=== PATIENT | female | born 1965 | race Caucasian/White ===

== ENCOUNTER → 2017-02-12 | Outpatient (CLI) | payer OTHER ==
[2017-02-12 18:33] LABS: ALANINE AMINOTRANSFERASE 20 U/L (9-52); ALBUMIN 4.1 g/dL (3.5-5.0); ALKALINE PHOSPHATASE 87 U/L (38-126); ASPARTATE AMINO TRANSFERASE 19 U/L (14-36); BILIRUBIN,DIRECT 0.3 mg/dL (0.0-0.4); BILIRUBIN,TOTAL 0.4 mg/dL (0.2-1.3)
== END ==
LOC: OD 17:27
PROVIDERS: ATTEND Radiology Radiation Oncology
DX: C50.411 Malignant neoplasm of upper-outer quadrant of right female breast (principal); Z79.899 Other long term (current) drug therapy
CPT/HCPCS: 36415; 80076

== ENCOUNTER → 2017-08-23 | Outpatient (CLI) | payer OTHER ==
[2017-08-23 18:40] LABS: ALANINE AMINOTRANSFERASE 29 U/L (9-52); ALKALINE PHOSPHATASE 77 U/L (38-126); ASPARTATE AMINO TRANSFERASE 17 U/L (14-36); TOTAL PROTEIN 6.5 g/dL (6.3-8.2)
[2017-08-23 18:43] LABS: BILIRUBIN,TOTAL < 0.1 mg/dL (0.2-1.3)
== END ==
LOC: OD 17:27
PROVIDERS: ATTEND Radiology Radiation Oncology
DX: C50.411 Malignant neoplasm of upper-outer quadrant of right female breast (principal); C77.3 Secondary and unspecified malignant neoplasm of axilla and upper limb lymph nodes
CPT/HCPCS: 36415; 80076

== ENCOUNTER → 2018-02-28 | Outpatient (CLI) | payer OTHER ==
[2018-02-28 18:51] LABS: ALANINE AMINOTRANSFERASE 18 U/L (9-52); ALBUMIN 4.3 g/dL (3.5-5.0); ALKALINE PHOSPHATASE 82 U/L (38-126); ASPARTATE AMINO TRANSFERASE 17 U/L (14-36); BILIRUBIN,DIRECT 0.2 mg/dL (0.0-0.4); BILIRUBIN,TOTAL 0.2 mg/dL (0.2-1.3); TOTAL PROTEIN 7.2 g/dL (6.3-8.2)
== END ==
LOC: OD 18:02
PROVIDERS: ATTEND Radiology Radiation Oncology
DX: C50.411 Malignant neoplasm of upper-outer quadrant of right female breast (principal); C77.3 Secondary and unspecified malignant neoplasm of axilla and upper limb lymph nodes
CPT/HCPCS: 36415; 80076

== ENCOUNTER 2018-11-18 07:55 | Inpatient (IN) | payer OTHER ==
[2018-11-18] MEDS ORDERED: ACETAMINOPHEN 325 MG TABLET PO ONE (08:31)
[2018-11-18] MEDS ORDERED: IPRATROPIUM/ALBUTEROL 0.5-2.5 MG/3 ML AMPUL NEB ONE (08:31)
[2018-11-18] MEDS ORDERED: NORMAL SALINE 1000 ML 1,000 ML IV ONE (08:31)
[2018-11-18 09:32] LABS: HEMATOCRIT 36.2 % (36.0-47.0); HEMOGLOBIN 11.9 g/dL (12.0-15.5); MEAN CORPUSCULAR HEMOGLOBIN 29.7 pg (27.0-33.4); MEAN CORPUSCULAR HGB CONC 32.9 g/dL (32.0-36.0); MEAN CORPUSCULAR VOLUME 90 fl (80-97); PLATELET COUNT 247 10^3/uL (150-450); RED BLOOD COUNT 4.01 10^6/uL (3.72-5.28); RED CELL DISTRIBUTION WIDTH 13.9 % (11.5-14.0); WHITE BLOOD COUNT 11.3 10^3/uL (4.0-10.5)
[2018-11-18 09:43] LABS: ALANINE AMINOTRANSFERASE 377 U/L (9-52); ALKALINE PHOSPHATASE 452 U/L (38-126); ANION GAP 11 (5-19); ASPARTATE AMINO TRANSFERASE 314 U/L (14-36); BILIRUBIN,DIRECT 0.3 mg/dL (0.0-0.4); BILIRUBIN,TOTAL 0.7 mg/dL (0.2-1.3); BLOOD UREA NITROGEN 8 mg/dL (7-20); CALCIUM 8.7 mg/dL (8.4-10.2); CARBON DIOXIDE 24 mmol/L (22-30); CHLORIDE 97 mmol/L (98-107); CREATINE KINASE 113 U/L (30-135); GLUCOSE 109 mg/dL (75-110); POTASSIUM 3.8 mmol/L (3.6-5.0); SODIUM 132.4 mmol/L (137-145); TOTAL PROTEIN 6.8 g/dL (6.3-8.2)
[2018-11-18 09:59] LABS: ABSOLUTE LYMPHOCYTES# (MANUAL) 0.6 10^3/uL (0.5-4.7); ABSOLUTE MONOCYTES # (MANUAL) 0.3 10^3/uL (0.1-1.4); ABSOLUTE NEUTROPHILS# (MANUAL) 10.4 10^3/uL (1.7-8.2); BAND NEUTROPHILS % (MANUAL) 7 % (3-5); BASOPHILS % (MANUAL) 0 % (0-2); EOSINOPHILS % (MANUAL) 0 % (0-6); LYMPHOCYTES % (MANUAL) 5 % (13-45); MONOCYTES % (MANUAL) 3 % (3-13); SEGMENTED NEUTROPHILS % (MAN) 85 % (42-78); TOTAL CELLS COUNTED 100
[2018-11-18 10:00] LABS: TOXIC VACUOLATION PRESENT
[2018-11-18 10:03] LABS: PLATELET COMMENT ADEQUATE; RBC MORPHOLOGY COMMENT NORMO-CYTIC/CHROMIC
[2018-11-18] MEDS ORDERED: LEVOFLOXACIN 750 MG/D5W RTU 750 MG/150 ML RTUPB IV ONE (10:34)
--- NOTE | 2018-11-18 10:41 | RADIOLOGY REPORT (SQ) ---
EXAM DESCRIPTION: CHEST 2 VIEWS COMPLETED DATE/TIME: 11/18/2018 10:25 am REASON FOR STUDY: productive cough COMPARISON: 08/07/2014 EXAM PARAMETERS: NUMBER OF VIEWS: two views TECHNIQUE: Digital Frontal and Lateral radiographic views of the chest acquired. RADIATION DOSE: NA LIMITATIONS: none FINDINGS: LUNGS AND PLEURA: Multifocal airspace disease, more extensive in the left perihilar-left upper and left lower lobes. Considerations for these findings include multifocal pneumonic infiltrat es and or edema. No pneumothorax or pleural effusion. MEDIASTINUM AND HILAR STRUCTURES: No masses or contour abnormalities. HEART AND VASCULAR STRUCTURES: Cardiomegaly and mild pulmonary vascular congestion, new findings. BONES: No acute findings. HARDWARE: None in the chest. OTHER: No other significant finding. IMPRESSION: 1. Bilateral multifocal airspace disease, more extensive on the left. Considerations fo r these findings include pneumonic infiltrates and or edema. Correlation suggested and additional im aging if clinically indicated 2. Cardiomegaly and mild pulmonary vascular congestion, new findings since the prior study dated . COMMENT: 1. The results of this examination were discussed with the emergency provider on 11/18/2018 at 10:34 hours. TECHNICAL DOCUMENTATION: JOB ID: [id number] [employer]- All Rights Reserved Reading location - IP/workstation name: [email or web address]
[2018-11-18 11:06] LABS: CREATINE KINASE MB 1.13 ng/mL (<4.55); TROPONIN I 0.023 ng/mL
--- NOTE | 2018-11-18 12:12 | ER Document Report ---
Entered by KAREN WASHINGTON SCRIBE 11/18/18 0840 Acting as scribe for:MARIZOL SCHWARTZ MD ED General - General Chief Complaint: Nausea/Vomiting Stated Complaint: DEHYDRATION Time Seen by Provider: 11/18/18 08:22 Mode of Arrival: Ambulatory Information source: Patient Notes: Patient is a 52 year old female with hypothyroidism and a history of breast cancer presents to the emergency department complaining of nausea, vomiting, intermittent fevers and cough onset 4 days ago. Patient describes her cough as initially nonproductive but reports it progressed to a productive cough with brown sputum 2 days ago. She states her vomiting progressively worsened over the weekend but reports no longer feeling nauseous after recently receiving a zofran shot from her PCP, Dr. Carrera. She reports taking Tylenol last night. She also complains of a sore throat but attributes this to her cough. She states "I am a cancer survivor but these symptoms are far worse". Patient states she takes Lasix for chronic edema in her BLE but has not taken any in 4 days due to her symptoms. TRAVEL OUTSIDE OF THE [place] IN LAST 30 DAYS: No - Related Data Allergies/Adverse Reactions: Sulfa (Sulfonamide Antibiotics) Allergy (Intermediate, Verified 09/13/12 09:02) tounge swelling, nubness around lips Past Medical History - General Information source: Patient - Social History Smoking Status: Never Smoker Cigarette use (# per day): No Chew tobacco use (# tins/day): No Smoking Education Provided: No Frequency of alcohol use: None Family History: Reviewed & Not Pertinent Malignancy Medical History: Reports: Hx Breast Cancer - stage 1, s/p lumpectomy September 2012 Psychiatric Medical History: Reports: Hx Depression Past Surgical History: Reports: Hx Breast Surgery, Hx Cholecystectomy, Hx Gastric Bypass Surgery, Hx Hysterectomy, Hx Thyroid Surgery - Immunizations Hx Diphtheria, Pertussis, Tetanus Vaccination: No - unsure Review of Systems - Review of Systems Constitutional: Fever EENT: No symptoms reported Cardiovascular: No symptoms reported Respiratory: See HPI, Cough Gastrointestinal: See HPI, Nausea, Vomiting Genitourinary: No symptoms reported Female Genitourinary: No symptoms reported Musculoskeletal: No symptoms reported Skin: No symptoms reported Hematologic/Lymphatic: No symptoms reported Neurological/Psychological: No symptoms reported -: Yes All other systems reviewed and negative Physical Exam - Vital signs Vitals: Temp Pulse Resp BP Pulse Ox 103.0 F H 106 H 22 H 160/83 H 89 L 11/18/18 08:08 11/18/18 08:08 11/18/18 08:08 11/18/18 08:08 11/18/18 08:08 - Notes Notes: GENERAL: Alert, interacts well. No acute distress. HEAD: Normocephalic, atraumatic. EYES: Pupils equal, round, and reactive to light. Extraocular movements intact. ENT: Oral mucosa dry, tongue midline. Voice is hoarse. NECK: Full range of motion. Supple. Trachea midline. LUNGS: Rhonchi and wheezes. No respiratory distress. HEART: Tachycardic. No murmurs, gallops, or rubs. ABDOMEN: Soft, obese, non-tender. Non-distended. Bowel sounds present in all 4 quadrants. No guarding, rigidity, or rebound. EXTREMITIES: Moves all 4 extremities spontaneously. Chronic edema to the BLE, radial and dorsalis pedis pulses 2/4 bilaterally. No cyanosis. NEUROLOGICAL: Alert and oriented x3. Normal speech. PSYCH: Normal affect, normal mood. SKIN: Warm, dry, normal turgor. No rashes or lesions noted. Course - Vital Signs Vital signs: Temp Pulse Resp BP Pulse Ox 98.3 F 106 H 19 153/91 H 94 11/18/18 12:41 11/18/18 08:08 11/18/18 12:01 11/18/18 12:01 11/18/18 12:01 - Laboratory Result Diagrams: 11/18/18 09:08 11/18/18 09:08 Laboratory results interpreted by me: 11/18/18 11/18/18 09:08 09:08 WBC 11.3 H Hgb 11.9 L Seg Neuts % (Manual) 85 H Band Neutrophils % 7 H Lymphocytes % (Manual) 5 L Abs Neuts (Manual) 10.4 H Sodium 132.4 L Chloride 97 L Creatinine 0.50 L AST 314 H ALT 377 H Alkaline Phosphatase 452 H - Diagnostic Test Radiology reviewed: Image reviewed, Reports reviewed - Chest x-ray shows bilateral multifocal airspace disease, more extensive on the left. There is also cardiomegaly and mild pulmonary vascular congestion which are new compared to a prior study from 08/07/2014. - EKG Interpretation by Me EKG shows normal: Sinus rhythm, Baudette, Intervals, QRS Complexes. abnormal: ST-T Waves - Borderline anterolateral T abnormalities Rate: Normal - 90 Rhythm: NSR P Waves: LAE - Consults Dr. Pepper Time consulted: 11:35 Consulted provider: will come to ER - Telemetry admission. Dr. Pepper was informed that Dr. Brandon wanted to be consulted on this patient. Discharge - Discharge Clinical Impression: Multifocal pneumonia, Elevated liver enzymes, Cardiac enlargement Fever Qualifiers: Fever type: unspecified Qualified Code(s): R50.9 - Fever, unspecified Leukocytosis Qualifiers: Leukocytosis type: bandemia Qualified Code(s): D72.825 - Bandemia Condition: Stable Disposition: ADMITTED INPATIENT Admitting Provider: Hospitalist Unit Admitted: Telemetry Scribe Attestation: 11/18/18 08:51 I personally performed the services described in the documentation, reviewed and edited the documentation which was dictated to the scribe in my presence, and it accurately records my words and actions. I personally performed the services described in the documentation, reviewed and edited the documentation which was dictated to the scribe in my presence, and it accurately records my words and actions.
[2018-11-18] MEDS ORDERED: ONDANSETRON HCL INJ/PF 4 MG/2 ML SDV IV PRN (12:20)
--- NOTE | 2018-11-18 12:46 | PDOC H&P ---
History of Present Illness Admission Date/PCP: RANULFO MCCORD MD Patient complains of: cough, fever History of Present Illness: TAZ LUONG is a 52 year old female witha PMH of Stage 1 breast CA w/ prior lumpectomy in 2012, prior chemoradiation, recnetl taken off Tamoxifen in Apr 2018, history of Rena en Y bypass and hypothyroidism who presented with increasingly productive cough. Patient says she had cough and cold on Sunday and was negative tested for flu by PCP then. She says on sunday, she started having more productive cough with brownish sputum associated with chills and fever. She developed mild SOB but says it is more from all the bouts of coughing. She is not dyspneic at rest. Denies chest pain. In the ER, lowest sat was 89% on room air. Chest x -ray shows multifocal pneumonia. She is currently comfortable and saturating well on 2 lpm via NC. Past Medical History Cardiac Medical History: Denies: Hypertension - previous meds prior to gastric bypass 2007 Malignancy Medical History: Reports: Breast Cancer - stage 1, s/p lumpectomy September 2012 Musculoskeltal Medical History: Denies: Arthritis Psychiatric Medical History: Reports: Depression Hematology: Reports: Anemia - since gastric bypass Past Surgical History Past Surgical History: Reports: Cholecystectomy, Gastric Bypass Surgery, Hysterectomy Denies: Pacemaker Social History Smoking Status: Never Smoker Family History Family History: Reviewed & Not Pertinent Parental Family History Reviewed: Yes - no premature CAD Children Family History Reviewed: No Sibling(s) Family History Reviewed.: No Medication/Allergy Home Medications: Calcium Citrate/Vitamin D3 [Citracal + D Caplet] 1 each PO TID 09/13/12 Cyanocobalamin (Vitamin B-12) [Vitamin B-12] 500 mcg SL DAILY 09/13/12 Levothyroxine Sodium [Synthroid] 175 mcg PO DAILY 09/13/12 Acetaminophen [Tylenol Extra Strength] 500 mg PO ASDIR PRN 10/03/12 Multi-Vitamin 4 tab PO BID 10/03/12 Zolpidem Tartrate [Ambien 10 mg Tablet] 10 mg PO HSP PRN 10/03/12 Gabapentin [Neurontin 300 mg Capsule] 08/07/14 Hydrocodone Bit/Acetaminophen [Hydrocodon-Acetaminophen 5-325] 1 - 2 tab PO ASDIR PRN #10 tablet 08/07/14 Ondansetron [Zofran Odt 4 mg Tablet] 1 - 2 tab PO Q4H #20 tab.rapdis 08/07/14 Tamoxifen Citrate 08/07/14 Venlafaxine HCl [Effexor 75 mg Tablet] 08/07/14 Allergies/Adverse Reactions: Sulfa (Sulfonamide Antibiotics) Allergy (Intermediate, Verified 09/13/12 09:02) tounge swelling, nubness around lips Review of Systems All systems: reviewed and no additional remarkable complaints except as stated - as mentioned in HPI Physical Exam Vital Signs: Temp Pulse Resp BP Pulse Ox 103.0 F H 106 H 21 H 140/82 H 94 11/18/18 08:08 11/18/18 08:08 11/18/18 10:01 11/18/18 10:01 11/18/18 10:01 Intake & Output 11/17/18 11/18/18 11/19/18 06:59 06:59 06:59 Intake Total 1000 Balance 1000 Weight 298 lb 8.094 oz General appearance: PRESENT: no acute distress, well-developed, well-nourished Head exam: PRESENT: atraumatic, normocephalic Eye exam: PRESENT: conjunctiva pink, EOMI, PERRLA. ABSENT: scleral icterus Ear exam: PRESENT: normal external ear exam Mouth exam: PRESENT: moist, tongue midline Neck exam: ABSENT: carotid bruit, JVD, lymphadenopathy, thyromegaly Respiratory exam: PRESENT: rales, rhonchi. ABSENT: wheezes Cardiovascular exam: PRESENT: RRR. ABSENT: diastolic murmur, rubs, systolic murmur Pulses: PRESENT: normal dorsalis pedis pul GI/Abdominal exam: PRESENT: normal bowel sounds, soft. ABSENT: distended, guarding, mass, organolmegaly, rebound, tenderness Rectal exam: PRESENT: deferred Neurological exam: PRESENT: alert, awake, oriented to person, oriented to place, oriented to time, oriented to situation, CN II-XII grossly intact. ABSENT: motor sensory deficit Results Laboratory Results: 11/18/18 09:08 11/18/18 09:08 11/18/18 11/18/18 09:08 09:08 WBC 11.3 H RBC 4.01 Hgb 11.9 L Hct 36.2 MCV 90 MCH 29.7 MCHC 32.9 RDW 13.9 Plt Count 247 Seg Neutrophils % Not Reportable Lymphocytes % Not Reportable Monocytes % Not Reportable Eosinophils % Not Reportable Basophils % Not Reportable Absolute Neutrophils Not Reportable Absolute Lymphocytes Not Reportable Absolute Monocytes Not Reportable Absolute Eosinophils Not Reportable Absolute Basophils Not Reportable Sodium 132.4 L Potassium 3.8 Chloride 97 L Carbon Dioxide 24 Anion Gap 11 BUN 8 Creatinine 0.50 L Est GFR ( Amer) > 60 Est GFR (Non-Af Amer) > 60 Glucose 109 Calcium 8.7 Magnesium 1.9 Total Bilirubin 0.7 AST 314 H ALT 377 H Alkaline Phosphatase 452 H Total Protein 6.8 Albumin 4.0 11/18/18 11/18/18 09:08 09:08 Creatine Kinase 113 CK-MB (CK-2) 1.13 Troponin I 0.023 NT-Pro-B Natriuret Pep 847 Impressions: Chest X-Ray 11/18/18 10:02 IMPRESSION: 1. Bilateral multifocal airspace disease, more extensive on the left. Considerations for these findings include pneumonic infiltrates and or edema. Correlation suggested and additional imaging if clinically indicated 2. Cardiomegaly and mild pulmonary vascular congestion, new findings since the prior study dated 08/07/2014. Assessment & Plan - Diagnosis (1) Acute respiratory failure with hypoxia Is this a current diagnosis for this admission?: Yes Plan: Secondary to multifocal pneumonia. Saturating well on 2 lpm via NC. (2) Multifocal pneumonia Is this a current diagnosis for this admission?: Yes Plan: Will order sputum culture. IV Levaquin and breathing treatments. (3) Elevated liver enzymes Is this a current diagnosis for this admission?: Yes Plan: She has a history of cholecystectomy. She did say she was taking 1000 mg of Tylenol q4 hrs in the past 2 days for the fever. Alk Phos is also elevated. Will pursue imaging to further evaluate cause of transaminitis. Will check a hepatitis panel. No Tylenol for now. Ibuprofen for fever prn for now. - Time Time Spent: 30 to 50 Minutes
[2018-11-18] MEDS ORDERED: FONDAPARINUX SODIUM INJ 2.5 MG/0.5 ML DISP.SYRIN SUBCUT ONE (13:00)
--- NOTE | 2018-11-18 13:24 | RADIOLOGY REPORT (SQ) ---
EXAM DESCRIPTION: CT ABD/PELVIS NO ORAL OR IV COMPLETED DATE/TIME: 11/18/2018 1:11 pm REASON FOR STUDY: vomiting, elevated liver enzymes COMPARISON: None. TECHNIQUE: CT scan of the abdomen and pelvis performed without intravenous or oral contrast. Images reviewed with lung, soft tissue, and bone windows. Reconstructed coronal and sagittal MPR images revi ewed. All images stored on PACS. All CT scanners at this facility use dose modulation, iterative reconstruction, and/or weight based d osing when appropriate to reduce radiation dose to as low as reasonably achievable (ALARA). [facility]: Dose Right [facility]: CareDose [facility]: Dose Right [facility]: Teradose 4D [facility]: [employer] Technologies RADIATION DOSE: CT Rad equipment meets quality standard of care and radiation dose reduction techniq ues were employed. CTDIvol: 21.1 mGy. DLP: 1183 mGy-cm.mGy. LIMITATIONS: None. FINDINGS: LOWER CHEST: Infiltrates with air bronchograms in the left lower lobe and inferior left up per lobe/ lingula. Patchy parenchymal densities in the right lower lobe. NON-CONTRASTED LIVER, SPLEEN, ADRENALS: Evaluation limited by lack of IV contrast. No identified sign ificant masses. PANCREAS: No masses. No peripancreatic inflammatory changes. GALLBLADDER: Surgically absent. RIGHT KIDNEY AND URETER: No suspicious masses. Assessment limited by lack of IV contrast. No signif icant calcifications. No hydronephrosis or hydroureter. LEFT KIDNEY AND URETER: No suspicious masses. Assessment limited by lack of IV contrast. No signifi cant calcifications. No hydronephrosis or hydroureter. AORTA AND RETROPERITONEUM: No aneurysm. No retroperitoneal masses or adenopathy. BOWEL AND PERITONEAL CAVITY: Previous gastric surgery. No obvious masses or inflammatory changes. No free fluid. APPENDIX: Normal. PELVIS, BLADDER, AND ABDOMINAL WALL:No abnormal masses. No free fluid. Bladder normal. BONES: No significant findings. OTHER: No other significant finding. IMPRESSION: 1. MULTIFOCAL PULMONARY INFILTRATES IN THE VISUALIZED LOWER CHEST CONSISTENT WITH PNEUMONIA. 2. OTHERWISE NO SIGNIFICANT OR ACUTE PROCESS IN THE ABDOMEN OR PELVIS. INCIDENTAL SURGICAL CHANGES. COMMENT: Quality ID # [id number]: Final reports with documentation of one or more dose reduction techniques (e.g., Automated exposure control, adjustment of the mA and/or kV according to patient size, use of iterative reconstruction technique) TECHNICAL DOCUMENTATION: JOB ID: [id number] [employer]- All Rights Reserved Reading location - IP/workstation name: [email or web address]
[2018-11-18] MEDS: NORMAL SALINE 1000 ML 1,000 ML IV PRN (13:25)
--- NOTE | 2018-11-18 13:38 | EKG REPORT ---
SEVERITY:- BORDERLINE ECG - SINUS RHYTHM PROBABLE LEFT ATRIAL ABNORMALITY BORDERLINE T ABNORMALITIES, ANT-LAT LEADS : Confirmed by: Lopez Haynes MD 18-Nov-2018 13:38:14
[2018-11-18] MEDS: IBUPROFEN 400 MG TABLET PO PRN ×2 (17:02→23:50)
[2018-11-18 17:03] LABS: APPEARANCE,URINE CLEAR; BILIRUBIN,URINE NEGATIVE (NEGATIVE); COLOR,URINE YELLOW; GLUCOSE, URINE NEGATIVE (NEGATIVE); KETONES,URINE 80 mg/dL (NEGATIVE); LEUKOCYTE ESTERASE,URINE NEGATIVE (NEGATIVE); NITRITE,URINE NEGATIVE (NEGATIVE); PROTEIN,URINE NEGATIVE (NEGATIVE); URINE SPECIFIC GRAVITY 1.012; UROBILINOGEN,URINE NEGATIVE mg/dL (<2.0)
[2018-11-18] MEDS ORDERED: HYDRALAZINE HCL INJ/PF 20 MG/1 ML SDV IV PRN (18:21)
[2018-11-18] MEDS ORDERED: ACETAMINOPHEN 325 MG TABLET ONE (23:43)
[2018-11-18] MEDS ORDERED: ACETAMINOPHEN 325 MG TABLET PO PRN (23:48)
[2018-11-19] MEDS: ALBUTEROL SULFATE 0.083% NEB 2.5 MG/3 ML AMPUL NEB PRN ×3 (00:42→18:04)
[2018-11-19] MEDS: NORMAL SALINE 1000 ML 1,000 ML IV PRN ×2 (06:35→15:22)
[2018-11-19] MEDS ORDERED: FONDAPARINUX SODIUM INJ 2.5 MG/0.5 ML DISP.SYRIN SUBCUT SCH (08:00)
[2018-11-19] MEDS ORDERED: POLYETHYLENE GLYCOL 3350 POWDER 17 GM/1 PACKET PO PRN (09:53)
[2018-11-19] MEDS: LEVOFLOXACIN 750 MG/D5W RTU 750 MG/150 ML RTUPB IV SCH (10:31)
[2018-11-19] MEDS: FONDAPARINUX SODIUM INJ 2.5 MG/0.5 ML DISP.SYRIN SUBCUT SCH (11:13)
[2018-11-19 11:40] LABS: HEPATITIS A AB IGM Negative (Negative); HEPATITIS B CORE AB IGM Negative (Negative); HEPATITS B SURFACE ANTIGEN Negative (Negative)
[2018-11-19 12:04] LABS: ABSOLUTE LYMPHOCYTES (AUTO) 1.1 10^3/uL (0.5-4.7); ABSOLUTE MONOCYTES (AUTO) 0.5 10^3/uL (0.1-1.4); ABSOLUTE NEUT (AUTO) 9.3 10^3/uL (1.7-8.2); BASOPHILS % (AUTO) 0.3 % (0-2); EOSINOPHILS % (AUTO) 0.2 % (0-6); HEMATOCRIT 37.8 % (36.0-47.0); HEMOGLOBIN 12.7 g/dL (12.0-15.5); LYMPHOCYTES % (AUTO) 10.1 % (13-45); MEAN CORPUSCULAR HEMOGLOBIN 30.2 pg (27.0-33.4); MEAN CORPUSCULAR HGB CONC 33.7 g/dL (32.0-36.0); MEAN CORPUSCULAR VOLUME 90 fl (80-97); MONOCYTES % (AUTO) 4.7 % (3-13); PLATELET COUNT 261 10^3/uL (150-450); RED BLOOD COUNT 4.21 10^6/uL (3.72-5.28); SEGMENTED NEUTROPHILS % (AUTO) 84.7 % (42-78); TOTAL CELLS COUNTED % (AUTO) 100 %; WHITE BLOOD COUNT 10.9 10^3/uL (4.0-10.5)
[2018-11-19 12:05] LABS: ALANINE AMINOTRANSFERASE 252 U/L (9-52); ALBUMIN 4.2 g/dL (3.5-5.0); ALKALINE PHOSPHATASE 389 U/L (38-126); ANION GAP 13 (5-19); ASPARTATE AMINO TRANSFERASE 121 U/L (14-36); BILIRUBIN,DIRECT 0.4 mg/dL (0.0-0.4); BILIRUBIN,TOTAL 0.6 mg/dL (0.2-1.3); BLOOD UREA NITROGEN 8 mg/dL (7-20); CALCIUM 9.1 mg/dL (8.4-10.2); CARBON DIOXIDE 24 mmol/L (22-30); CHLORIDE 101 mmol/L (98-107); GLUCOSE 131 mg/dL (75-110); POTASSIUM 3.6 mmol/L (3.6-5.0); SODIUM 137.5 mmol/L (137-145); TOTAL PROTEIN 7.4 g/dL (6.3-8.2)
[2018-11-19] MEDS ORDERED: ZOLPIDEM TARTRATE 5 MG TABLET PO PRN (12:34)
--- NOTE | 2018-11-19 12:34 | PDOC PROGRESS REPORT ---
Subjective Progress Note for:: 11/19/18 Subjective:: TAZ LUONG is a 52 year old female with a PMH of Stage 1 breast CA w/ prior lumpectomy in 2012, prior chemoradiation, recently taken off Tamoxifen in Apr 2018, history of Rena en Y bypass and hypothyroidism who presented with increasingly productive cough and hypoxia and was admitted for multifocal pneumonia. No acute event overnight. She is currently comfortable and saturating well on 2 lpm via NC. She says her SOB has slightly improved from yesterday. She continues to have very productive cough with grayish-brownish sputum. Reason For Visit: ACUTE HYPOXIC RESPIRATORY FAILURE,MULTIFOCAL Physical Exam Vital Signs: Temp Pulse Resp BP Pulse Ox 98.4 F 103 H 20 138/76 H 96 11/19/18 11:26 11/19/18 11:26 11/19/18 11:26 11/19/18 11:26 11/19/18 11:26 Intake & Output 11/18/18 11/19/18 11/20/18 06:59 06:59 06:59 Intake Total 2150 Balance 2150 Weight 310 lb 3.046 oz General appearance: PRESENT: no acute distress, well-developed, well-nourished Head exam: PRESENT: atraumatic, normocephalic Eye exam: PRESENT: conjunctiva pink, EOMI, PERRLA. ABSENT: scleral icterus Ear exam: PRESENT: normal external ear exam Mouth exam: PRESENT: moist, tongue midline Neck exam: ABSENT: carotid bruit, JVD, lymphadenopathy, thyromegaly Respiratory exam: PRESENT: rales, rhonchi. ABSENT: wheezes Cardiovascular exam: PRESENT: RRR. ABSENT: diastolic murmur, rubs, systolic murmur Pulses: PRESENT: normal dorsalis pedis pul GI/Abdominal exam: PRESENT: normal bowel sounds, soft. ABSENT: distended, guarding, mass, organolmegaly, rebound, tenderness Rectal exam: PRESENT: deferred Neurological exam: PRESENT: alert, awake, oriented to person, oriented to place, oriented to time, oriented to situation, CN II-XII grossly intact. ABSENT: motor sensory deficit Results Laboratory Results: 11/19/18 11:26 11/19/18 11:26 11/18/18 11/18/18 11/19/18 16:40 17:40 11:26 WBC 10.9 H RBC 4.21 Hgb 12.7 Hct 37.8 MCV 90 MCH 30.2 MCHC 33.7 RDW 14.0 Plt Count 261 Seg Neutrophils % 84.7 H Lymphocytes % 10.1 L Monocytes % 4.7 Eosinophils % 0.2 Basophils % 0.3 Absolute Neutrophils 9.3 H Absolute Lymphocytes 1.1 Absolute Monocytes 0.5 Absolute Eosinophils 0.0 Absolute Basophils 0.0 Sodium Potassium Chloride Carbon Dioxide Anion Gap BUN Creatinine Est GFR ( Amer) Est GFR (Non-Af Amer) Glucose Lactic Acid 2.2 H Calcium Total Bilirubin AST ALT Alkaline Phosphatase Total Protein Albumin Urine Color YELLOW Urine Appearance CLEAR Urine pH 6.0 Ur Specific [place] 1.012 Urine Protein NEGATIVE Urine Glucose (UA) NEGATIVE Urine Ketones 80 H Urine Blood SMALL H Urine Nitrite NEGATIVE Ur Leukocyte Esterase NEGATIVE Urine WBC (Auto) 2 Urine RBC (Auto) 3 11/19/18 11:26 WBC RBC Hgb Hct MCV MCH MCHC RDW Plt Count Seg Neutrophils % Lymphocytes % Monocytes % Eosinophils % Basophils % Absolute Neutrophils Absolute Lymphocytes Absolute Monocytes Absolute Eosinophils Absolute Basophils Sodium 137.5 Potassium 3.6 Chloride 101 Carbon Dioxide 24 Anion Gap 13 BUN 8 Creatinine 0.45 L Est GFR ( Amer) > 60 Est GFR (Non-Af Amer) > 60 Glucose 131 H Lactic Acid Calcium 9.1 Total Bilirubin 0.6 AST 121 H ALT 252 H Alkaline Phosphatase 389 H Total Protein 7.4 Albumin 4.2 Urine Color Urine Appearance Urine pH Ur Specific [place] Urine Protein Urine Glucose (UA) Urine Ketones Urine Blood Urine Nitrite Ur Leukocyte Esterase Urine WBC (Auto) Urine RBC (Auto) 11/18/18 11/18/18 09:08 09:08 Creatine Kinase 113 CK-MB (CK-2) 1.13 Troponin I 0.023 NT-Pro-B Natriuret Pep 847 Impressions: Chest X-Ray 11/18/18 10:02 IMPRESSION: 1. Bilateral multifocal airspace disease, more extensive on the left. Considerations for these findings include pneumonic infiltrates and or edema. Correlation suggested and additional imaging if clinically indicated 2. Cardiomegaly and mild pulmonary vascular congestion, new findings since the prior study dated 08/07/2014. Abdomen/Pelvis CT 11/18/18 11:54 IMPRESSION: 1. MULTIFOCAL PULMONARY INFILTRATES IN THE VISUALIZED LOWER CHEST CONSISTENT WITH PNEUMONIA. 2. OTHERWISE NO SIGNIFICANT OR ACUTE PROCESS IN THE ABDOMEN OR PELVIS. INCIDENTAL SURGICAL CHANGES. Assessment & Plan - Diagnosis (1) Sepsis Is this a current diagnosis for this admission?: Yes Plan: Secondary to multifocal pneumonia. Patient was tachypneic and hypoxic when she came in. She had elevated WBC and elevated liver enzymes. (2) Acute respiratory failure with hypoxia Is this a current diagnosis for this admission?: Yes Plan: Secondary to multifocal pneumonia. Saturating well on 2 lpm via NC. (3) Multifocal pneumonia Is this a current diagnosis for this admission?: Yes Plan: Sputum culture pending. Continue IV Levaquin and breathing treatments. (4) Elevated liver enzymes Is this a current diagnosis for this admission?: Yes Plan: She has a history of cholecystectomy. She did say she was taking 1000 mg of Tylenol q4 hrs in the past 2 days for the fever. Alk Phos is also elevated. CT of the abdomen/pelvis was unremarkable. Hepatitis panel pending. No Tylenol for now. Ibuprofen for fever prn for now. This could be related to her sepsis and not likely suggestive of mets. Liver enzymes are improving. Will continue to monitor. - Time Time Spent with patient: 25-34 minutes
[2018-11-19 12:39] LABS: HEPATITIS C VIRUS ANTIBODY <0.1 s/co ratio (0.0-0.9)
[2018-11-19] MEDS: IBUPROFEN 400 MG TABLET PO PRN (20:09)
[2018-11-20 00:17] LABS: ALANINE AMINOTRANSFERASE 171 U/L (9-52); ALBUMIN 3.4 g/dL (3.5-5.0); ALKALINE PHOSPHATASE 286 U/L (38-126); ANION GAP 7 (5-19); ASPARTATE AMINO TRANSFERASE 72 U/L (14-36); BILIRUBIN,DIRECT 0.2 mg/dL (0.0-0.4); BILIRUBIN,TOTAL 0.4 mg/dL (0.2-1.3); BLOOD UREA NITROGEN 7 mg/dL (7-20); CALCIUM 8.3 mg/dL (8.4-10.2); CARBON DIOXIDE 25 mmol/L (22-30); CHLORIDE 104 mmol/L (98-107); GLUCOSE 108 mg/dL (75-110); POTASSIUM 3.4 mmol/L (3.6-5.0); SODIUM 136.3 mmol/L (137-145); TOTAL PROTEIN 6.1 g/dL (6.3-8.2)
[2018-11-20] MEDS: POTASSIUM CHLORIDE 20 MEQ/50 ML RTU IV SCH ×2 (01:37→03:17)
[2018-11-20] MEDS: NORMAL SALINE 1000 ML 1,000 ML IV PRN ×2 (03:23→18:43)
[2018-11-20] MEDS: IBUPROFEN 400 MG TABLET PO PRN (03:23)
[2018-11-20] MEDS: LEVOFLOXACIN 750 MG/D5W RTU 750 MG/150 ML RTUPB IV SCH (11:45)
[2018-11-20] MEDS: FONDAPARINUX SODIUM INJ 2.5 MG/0.5 ML DISP.SYRIN SUBCUT SCH (11:46)
--- NOTE | 2018-11-20 12:18 | RADIOLOGY REPORT (SQ) ---
EXAM DESCRIPTION: PICC INSERTION; U/S GUIDE FOR VASCULAR ACCESS; FLUORO/CV PLACEMENT COMPLETED DATE/TIME: 11/20/2018 11:03 am REASON FOR STUDY: BLOOD DRAWS; IV ACCESS COMPARISON: None. FLUOROSCOPY TIME: 0.29 minutes. 1 images saved to PACS. TECHNIQUE: Fluoroscopic and ultrasound guided PICC placement. LIMITATIONS: None. PROCEDURE: After written consent and assessment were obtained, the patient was brought into the fluo roscopy room and placed supine on the table. Ultrasound evaluation of potential access sites were per formed. After successfully identifying a patent left basilic vein, the left arm was prepped and drape d in a sterile fashion along with the ultrasound probe. The entry site was anesthetized with 1% lidoc tani. A 21 gauge 7 cm needle was advanced through the skin and into the basilic vein under live ultra sound guidance. An ultrasound image was saved to PACS confirming access site. A .018 guide wire was then inserted through the needle and into the venous system. The needle was then removed and an 11 b lade scalpel was used to make a 1cm skin incision. A 5 fr peel-away sheath was advanced over the wir e and into the venous system. A measurement was then made using the existing wire and live fluoroscop ic guidance. The wire was then removed and trimmed. The PICC was advanced through the peel-away sheat h and into the venous system. The peel-away sheath was removed and the catheter was adhered to the pa tients arm with a stat lock. The catheter was then aspirated and flushed and a sterile bandage was pl aced over the access site. A fluoroscopic spot image was saved to PACS confirming the catheter tip w ithin the superior vena cava. IMPRESSION: SUCCESSFUL PLACEMENT OF A 5 FR DUAL LUMEN 47 CM PICC IN THE LEFT BASILIC VEIN. COMMENT: Patient medication list reviewed: Yes- Quality ID# [id number]:Eligible professional attests to doc umenting in the medical record they obtained, updated, or reviewed the patient's current medications. . Quality ID 145: Final reports for procedures using fluoroscopy that document radiation exposure fidel imani, or exposure time and number of fluorographic images (if radiation exposure indices are not avail able) Quality ID #76: The patient was prepped and draped using maximum sterile barrier technique including cap, mask, sterile gown, sterile gloves, a large sterile sheet, hand hygiene, and 2% Chlorhexidine fo r cutaneous antisepsis. When ultrasound is used, sterile ultrasound techniques are followed requiring sterile gel and sterile probes. TECHNICAL DOCUMENTATION: JOB ID: [id number] [employer]- All Rights Reserved rev-01/25 Reading location - IP/workstation name: [email or web address]
[2018-11-20 12:24] LABS: ABSOLUTE EOSINOPHILS # (AUTO) 0.2 10^3/uL (0.0-0.6); ABSOLUTE LYMPHOCYTES (AUTO) 0.9 10^3/uL (0.5-4.7); ABSOLUTE MONOCYTES (AUTO) 0.5 10^3/uL (0.1-1.4); ABSOLUTE NEUT (AUTO) 6.3 10^3/uL (1.7-8.2); BASOPHILS % (AUTO) 0.4 % (0-2); HEMATOCRIT 32.5 % (36.0-47.0); HEMOGLOBIN 10.9 g/dL (12.0-15.5); LYMPHOCYTES % (AUTO) 11.5 % (13-45); MEAN CORPUSCULAR HEMOGLOBIN 30.1 pg (27.0-33.4); MEAN CORPUSCULAR HGB CONC 33.6 g/dL (32.0-36.0); MEAN CORPUSCULAR VOLUME 90 fl (80-97); MONOCYTES % (AUTO) 6.1 % (3-13); PLATELET COUNT 247 10^3/uL (150-450); RED BLOOD COUNT 3.63 10^6/uL (3.72-5.28); TOTAL CELLS COUNTED % (AUTO) 100 %; WHITE BLOOD COUNT 7.8 10^3/uL (4.0-10.5)
[2018-11-20] MEDS ORDERED: NORMAL SALINE 10 ML SDV (AFTER EACH USE) IV PRN (12:30)
[2018-11-20 12:44] LABS: ALANINE AMINOTRANSFERASE 145 U/L (9-52); ALBUMIN 3.2 g/dL (3.5-5.0); ALKALINE PHOSPHATASE 261 U/L (38-126); ANION GAP 7 (5-19); ASPARTATE AMINO TRANSFERASE 54 U/L (14-36); BILIRUBIN,DIRECT 0.3 mg/dL (0.0-0.4); BILIRUBIN,TOTAL 0.5 mg/dL (0.2-1.3); BLOOD UREA NITROGEN 9 mg/dL (7-20); CALCIUM 8.4 mg/dL (8.4-10.2); CARBON DIOXIDE 26 mmol/L (22-30); CHLORIDE 104 mmol/L (98-107); GLUCOSE 93 mg/dL (75-110); POTASSIUM 3.9 mmol/L (3.6-5.0); SODIUM 136.9 mmol/L (137-145); TOTAL PROTEIN 5.9 g/dL (6.3-8.2)
[2018-11-20] MEDS: ALBUTEROL SULFATE 0.083% NEB 2.5 MG/3 ML AMPUL NEB PRN ×2 (13:13→20:03)
--- NOTE | 2018-11-20 17:00 | PDOC PROGRESS REPORT ---
Subjective Progress Note for:: 11/20/18 Subjective:: TAZ LUONG is a 52 year old female with a PMH of Stage 1 breast CA w/ prior lumpectomy in 2012, prior chemoradiation, recently taken off Tamoxifen in Apr 2018, history of Rena en Y bypass and hypothyroidism who presented with increasingly productive cough and hypoxia and was admitted for multifocal pneumonia. 11/19: No acute event overnight. She is currently comfortable and saturating well on 2 lpm via NC. She says her SOB has slightly improved from yesterday. She continues to have very productive cough with grayish-brownish sputum. 11/20: Patient was slightly hypokalemic this morning. She had transient 17 beats of Vtach but she was asymptomatic during the episode and blood pressures were actually on the higher side. Upon encounter, she says her breathing has improved from yesterday. She says she is still coughing but the productivity has decreased. Denies chest pain or dizziness. Reason For Visit: ACUTE HYPOXIC RESPIRATORY FAILURE,MULTIFOCAL Physical Exam Vital Signs: Temp Pulse Resp BP Pulse Ox 97.8 F 85 20 152/89 H 96 11/20/18 11:21 11/20/18 13:12 11/20/18 13:12 11/20/18 11:21 11/20/18 13:12 Intake & Output 11/19/18 11/20/18 11/21/18 06:59 06:59 06:59 Intake Total 2150 2924 200 Balance 2150 2924 200 Weight 310 lb 3.046 oz 310 lb 13.628 oz General appearance: PRESENT: no acute distress, well-developed, well-nourished Head exam: PRESENT: atraumatic, normocephalic Eye exam: PRESENT: conjunctiva pink, EOMI, PERRLA. ABSENT: scleral icterus Ear exam: PRESENT: normal external ear exam Mouth exam: PRESENT: moist, tongue midline Neck exam: ABSENT: carotid bruit, JVD, lymphadenopathy, thyromegaly Respiratory exam: PRESENT: rales, rhonchi. ABSENT: wheezes Cardiovascular exam: PRESENT: RRR. ABSENT: diastolic murmur, rubs, systolic murmur Pulses: PRESENT: normal dorsalis pedis pul GI/Abdominal exam: PRESENT: normal bowel sounds, soft. ABSENT: distended, guarding, mass, organolmegaly, rebound, tenderness Rectal exam: PRESENT: deferred Neurological exam: PRESENT: alert, awake, oriented to person, oriented to place, oriented to time, oriented to situation, CN II-XII grossly intact. ABSENT: motor sensory deficit Results Laboratory Results: 11/20/18 12:00 11/20/18 12:00 11/19/18 11/20/18 11/20/18 23:50 12:00 12:00 WBC 7.8 RBC 3.63 L Hgb 10.9 L Hct 32.5 L MCV 90 MCH 30.1 MCHC 33.6 RDW 14.0 Plt Count 247 Seg Neutrophils % 80.0 H Lymphocytes % 11.5 L Monocytes % 6.1 Eosinophils % 2.0 Basophils % 0.4 Absolute Neutrophils 6.3 Absolute Lymphocytes 0.9 Absolute Monocytes 0.5 Absolute Eosinophils 0.2 Absolute Basophils 0.0 Sodium 136.3 L 136.9 L Potassium 3.4 L 3.9 Chloride 104 104 Carbon Dioxide 25 26 Anion Gap 7 7 BUN 7 9 Creatinine 0.42 L 0.40 L Est GFR ( Amer) > 60 > 60 Est GFR (Non-Af Amer) > 60 > 60 Glucose 108 93 Calcium 8.3 L 8.4 Magnesium 2.2 Total Bilirubin 0.4 0.5 AST 72 H 54 H ALT 171 H 145 H Alkaline Phosphatase 286 H 261 H Total Protein 6.1 L 5.9 L Albumin 3.4 L 3.2 L 11/18/18 10:39 Sputum Gram Stain - Final 11/18/18 11/18/18 09:08 09:08 Creatine Kinase 113 CK-MB (CK-2) 1.13 Troponin I 0.023 NT-Pro-B Natriuret Pep 847 Impressions: Chest X-Ray 11/18/18 10:02 IMPRESSION: 1. Bilateral multifocal airspace disease, more extensive on the left. Considerations for these findings include pneumonic infiltrates and or edema. Correlation suggested and additional imaging if clinically indicated 2. Cardiomegaly and mild pulmonary vascular congestion, new findings since the prior study dated 08/07/2014. Abdomen/Pelvis CT 11/18/18 11:54 IMPRESSION: 1. MULTIFOCAL PULMONARY INFILTRATES IN THE VISUALIZED LOWER CHEST CONSISTENT WITH PNEUMONIA. 2. OTHERWISE NO SIGNIFICANT OR ACUTE PROCESS IN THE ABDOMEN OR PELVIS. INCIDE NTAL SURGICAL CHANGES. Guidance Fluoroscopy 11/20/18 00:00 IMPRESSION: SUCCESSFUL PLACEMENT OF A 5 FR DUAL LUMEN 47 CM PICC IN THE LEFT BASILIC VEIN. Interventional Vascular Procedure 11/20/18 00:00 IMPRESSION: SUCCESSFUL PLACEMENT OF A 5 FR DUAL LUMEN 47 CM PICC IN THE LEFT BASILIC VEIN. PICC Line Insertion 11/20/18 00:00 IMPRESSION: SUCCESSFUL PLACEMENT OF A 5 FR DUAL LUMEN 47 CM PICC IN THE LEFT BASILIC VEIN. Assessment & Plan - Diagnosis (1) Sepsis Is this a current diagnosis for this admission?: Yes Plan: Secondary to multifocal pneumonia. Patient was tachypneic and hypoxic when she came in. She had elevated WBC and elevated liver enzymes as well. Continue Levaquin. Lactic acidosis did resolve. (2) Acute respiratory failure with hypoxia Is this a current diagnosis for this admission?: Yes Plan: Secondary to multifocal pneumonia. Saturating well on 2 lpm via NC. (3) Multifocal pneumonia Is this a current diagnosis for this admission?: Yes Plan: Sputum culture negative so far. Continue IV Levaquin and breathing treatments. (4) Elevated liver enzymes Is this a current diagnosis for this admission?: Yes Plan: She has a history of cholecystectomy. She did say she was taking 1000 mg of Tylenol q4 hrs in the past 2 days for the fever. Alk Phos is also elevated. CT of the abdomen/pelvis was unremarkable. Hepatitis panel pending. No Tylenol for now. Ibuprofen for fever prn for now. This could be related to her sepsis and not likely suggestive of mets. Liver enzymes continue to improve. Will continue to monitor.
[2018-11-20] MEDS ORDERED: PHENOL/SODIUM PHENOLATE 100 SPRAY/177 ML BOTTLE PO PRN (21:07)
[2018-11-20] MEDS: NORMAL SALINE 10 ML SDV (SCHEDULED) IV SCH (21:24)
[2018-11-20] MEDS: VENLAFAXINE HCL 75 MG TABLET PO SCH (21:24)
[2018-11-21] MEDS: NORMAL SALINE 1000 ML 1,000 ML IV PRN ×2 (10:00→21:37)
[2018-11-21] MEDS: VENLAFAXINE HCL 75 MG TABLET PO SCH ×2 (10:25→21:37)
[2018-11-21] MEDS: LEVOFLOXACIN 750 MG/D5W RTU 750 MG/150 ML RTUPB IV SCH (10:27)
[2018-11-21] MEDS: FONDAPARINUX SODIUM INJ 2.5 MG/0.5 ML DISP.SYRIN SUBCUT SCH (10:27)
[2018-11-21] MEDS: NORMAL SALINE 10 ML SDV (SCHEDULED) IV SCH ×2 (10:28→21:37)
--- NOTE | 2018-11-21 14:01 | PDOC PROGRESS REPORT ---
Subjective Progress Note for:: 11/21/18 Subjective:: TAZ LUONG is a 52 year old female with a PMH of Stage 1 breast CA w/ prior lumpectomy in 2012, prior chemoradiation, recently taken off Tamoxifen in Apr 2018, history of Rena en Y bypass and hypothyroidism who presented with increasingly productive cough and hypoxia and was admitted for multifocal pneumonia. 11/19: No acute event overnight. She is currently comfortable and saturating well on 2 lpm via NC. She says her SOB has slightly improved from yesterday. She continues to have very productive cough with grayish-brownish sputum. 11/20: Patient was slightly hypokalemic this morning. She had transient 17 beats of Vtach but she was asymptomatic during the episode and blood pressures were actually on the higher side. Upon encounter, she says her breathing has improved from yesterday. She says she is still coughing but the productivity has decreased. Denies chest pain or dizziness. 11/21: No acute event overnight. No recurrence of NSVT after correction of hypokalemia. She says she is still short of breath but this continues to improve. Denies chest pain. She is still having productive cough. Reason For Visit: ACUTE HYPOXIC RESPIRATORY FAILURE,MULTIFOCAL Physical Exam Vital Signs: Temp Pulse Resp BP Pulse Ox 98.1 F 74 20 143/79 H 94 11/21/18 11:00 11/21/18 11:00 11/21/18 11:00 11/21/18 11:00 11/21/18 11:00 Intake & Output 11/20/18 11/21/18 11/22/18 06:59 06:59 06:59 Intake Total 2924 1904 Balance 2924 1904 Weight 310 lb 13.628 oz 313 lb 7.957 oz General appearance: PRESENT: no acute distress, well-developed, well-nourished Head exam: PRESENT: atraumatic, normocephalic Eye exam: PRESENT: conjunctiva pink, EOMI, PERRLA. ABSENT: scleral icterus Ear exam: PRESENT: normal external ear exam Mouth exam: PRESENT: moist, tongue midline Neck exam: ABSENT: carotid bruit, JVD, lymphadenopathy, thyromegaly Respiratory exam: PRESENT: rales, rhonchi. ABSENT: wheezes Cardiovascular exam: PRESENT: RRR. ABSENT: diastolic murmur, rubs, systolic murmur Pulses: PRESENT: normal dorsalis pedis pul GI/Abdominal exam: PRESENT: normal bowel sounds, soft. ABSENT: distended, guarding, mass, organolmegaly, rebound, tenderness Rectal exam: PRESENT: deferred Neurological exam: PRESENT: alert, awake, oriented to person, oriented to place, oriented to time, oriented to situation, CN II-XII grossly intact. ABSENT: motor sensory deficit Results Laboratory Results: 11/20/18 12:00 11/20/18 12:00 11/18/18 10:39 Sputum Gram Stain - Final 11/18/18 11/18/18 09:08 09:08 Creatine Kinase 113 CK-MB (CK-2) 1.13 Troponin I 0.023 NT-Pro-B Natriuret Pep 847 Impressions: Chest X-Ray 11/18/18 10:02 IMPRESSION: 1. Bilateral multifocal airspace disease, more extensive on the left. Considerations for these findings include pneumonic infiltrates and or edema. Correlation suggested and additional imaging if clinically indicated 2. Cardiomegaly and mild pulmonary vascular congestion, new findings since the prior study dated 08/07/2014. Abdomen/Pelvis CT 11/18/18 11:54 IMPRESSION: 1. MULTIFOCAL PULMONARY INFILTRATES IN THE VISUALIZED LOWER CHEST CONSISTENT WITH PNEUMONIA. 2. OTHERWISE NO SIGNIFICANT OR ACUTE PROCESS IN THE ABDOMEN OR PELVIS. INCIDENTAL SURGICAL CHANGES. Guidance Fluoroscopy 11/20/18 00:00 IMPRESSION: SUCCESSFUL PLACEMENT OF A 5 FR DUAL LUMEN 47 CM PICC IN THE LEFT BASILIC VEIN. Interventional Vascular Procedure 11/20/18 00:00 IMPRESSION: SUCCESSFUL PLACEMENT OF A 5 FR DUAL LUMEN 47 CM PICC IN THE LEFT B ASILIC VEIN. PICC Line Insertion 11/20/18 00:00 IMPRESSION: SUCCESSFUL PLACEMENT OF A 5 FR DUAL LUMEN 47 CM PICC IN THE LEFT BASILIC VEIN. Assessment & Plan - Diagnosis (1) Sepsis Is this a current diagnosis for this admission?: Yes Plan: Secondary to multifocal pneumonia. Patient was tachypneic and hypoxic when she came in. She had elevated WBC and elevated liver enzymes as well. Continue Levaquin. Lactic acidosis did resolve. (2) Acute respiratory failure with hypoxia Is this a current diagnosis for this admission?: Yes Plan: Secondary to multifocal pneumonia. Saturating well on 2 lpm via NC. (3) Multifocal pneumonia Is this a current diagnosis for this admission?: Yes Plan: Sputum culture negative so far. Continue IV Levaquin and breathing treatments. (4) Elevated liver enzymes Is this a current diagnosis for this admission?: Yes Plan: She has a history of cholecystectomy. She did say she was taking 1000 mg of Tylenol q4 hrs in the past 2 days for the fever. Alk Phos is also elevated. CT of the abdomen/pelvis was unremarkable. Hepatitis panel pending. No Tylenol for now. Ibuprofen for fever prn for now. This could be related to her sepsis and not likely suggestive of mets. Liver enzymes continue to improve. Will continue to monitor. - Time Time Spent with patient: 25-34 minutes
[2018-11-22] MEDS: FONDAPARINUX SODIUM INJ 2.5 MG/0.5 ML DISP.SYRIN SUBCUT SCH (08:59)
[2018-11-22] MEDS: LEVOFLOXACIN 750 MG/D5W RTU 750 MG/150 ML RTUPB IV SCH (10:25)
[2018-11-22] MEDS: VENLAFAXINE HCL 75 MG TABLET PO SCH ×3 (10:27→21:13)
[2018-11-22] MEDS: NORMAL SALINE 1000 ML 1,000 ML IV PRN (10:31)
[2018-11-22] MEDS ORDERED: (PENDING PHARMACY ID) (Levothyroxine Sodium [Synthroid] 175 MCG) PO SCH (10:45)
--- NOTE | 2018-11-22 10:52 | PDOC PROGRESS REPORT ---
Subjective Progress Note for:: 11/22/18 Subjective:: TAZ LUONG is a 52 year old female with a PMH of Stage 1 breast CA w/ prior lumpectomy in 2012, prior chemoradiation, recently taken off Tamoxifen in Apr 2018, history of Rena en Y bypass and hypothyroidism who presented with increasingly productive cough and hypoxia and was admitted for multifocal pneumonia. 11/19: No acute event overnight. She is currently comfortable and saturating well on 2 lpm via NC. She says her SOB has slightly improved from yesterday. She continues to have very productive cough with grayish-brownish sputum. 11/20: Patient was slightly hypokalemic this morning. She had transient 17 beats of Vtach but she was asymptomatic during the episode and blood pressures were actually on the higher side. Upon encounter, she says her breathing has improved from yesterday. She says she is still coughing but the productivity has decreased. Denies chest pain or dizziness. 11/21: No recurrence of NSVT after correction of hypokalemia. She says she is still short of breath but this continues to improve. Denies chest pain. She is still having productive cough. 11/22: No acute event overnight. She continues to improve. She says her SOB is also better today. She is coughing less sputum now. She is saurating well on 2 lpm. Will try to wean her from O2. Repeat chest x-ray today. Anticipate discharge in the next 24-28 hrs if she continues to improve. Reason For Visit: ACUTE HYPOXIC RESPIRATORY FAILURE,MULTIFOCAL Physical Exam Vital Signs: Temp Pulse Resp BP Pulse Ox 97.9 F 92 18 137/77 H 97 11/22/18 07:23 11/22/18 10:24 11/22/18 10:24 11/22/18 07:23 11/22/18 10:24 Intake & Output 11/21/18 11/22/18 11/23/18 06:59 06:59 06:59 Intake Total 1904 3227 968 Balance 1904 3227 968 Weight 313 lb 7.957 oz 321 lb 3.416 oz General appearance: PRESENT: no acute distress, well-developed, well-nourished Head exam: PRESENT: atraumatic, normocephalic Eye exam: PRESENT: conjunctiva pink, EOMI, PERRLA. ABSENT: scleral icterus Ear exam: PRESENT: normal external ear exam Mouth exam: PRESENT: moist, tongue midline Neck exam: ABSENT: carotid bruit, JVD, lymphadenopathy, thyromegaly Respiratory exam: PRESENT: rales, rhonchi. ABSENT: wheezes Cardiovascular exam: PRESENT: RRR. ABSENT: diastolic murmur, rubs, systolic murmur Pulses: PRESENT: normal dorsalis pedis pul GI/Abdominal exam: PRESENT: normal bowel sounds, soft. ABSENT: distended, guarding, mass, organolmegaly, rebound, tenderness Rectal exam: PRESENT: deferred Neurological exam: PRESENT: alert, awake, oriented to person, oriented to place, oriented to time, oriented to situation, CN II-XII grossly intact. ABSENT: motor sensory deficit Results Laboratory Results: 11/20/18 12:00 11/20/18 12:00 11/18/18 10:39 Sputum Gram Stain - Final 11/18/18 10:39 Sputum Sputum Culture - Final NORMAL IBIS 11/18/18 11/18/18 09:08 09:08 Creatine Kinase 113 CK-MB (CK-2) 1.13 Troponin I 0.023 NT-Pro-B Natriuret Pep 847 Impressions: Abdomen/Pelvis CT 11/18/18 11:54 IMPRESSION: 1. MULTIFOCAL PULMONARY INFILTRATES IN THE VISUALIZED LOWER CHEST CONSISTENT WITH PNEUMONIA. 2. OTHERWISE NO SIGNIFICANT OR ACUTE PROCESS IN THE ABDOMEN OR PELVIS. INCIDENTAL SURGICAL CHANGES. Guidance Fluoroscopy 11/20/18 00:00 IMPRESSION: SUCCESSFUL PLACEMENT OF A 5 FR DUAL LUMEN 47 CM PICC IN THE LEFT BASILIC VEIN. Interventional Vascular Procedure 11/20/18 00:00 IMPRESSION: SUCCESSFUL PLACEMENT OF A 5 FR DUAL LUMEN 47 CM PICC IN THE LEFT BASILIC VEIN. PICC Line Insertion 11/20/18 00:00 IMPRESSION: SUCCESSFUL PLACEMENT OF A 5 FR DUAL LUMEN 47 CM PICC IN THE LEFT BASILIC VEIN. Assessment & Plan - Diagnosis (1) Acute respiratory failure with hypoxia Is this a current diagnosis for this admission?: Yes Plan: Secondary to multifocal pneumonia. Saturating well on 2 lpm via NC. 11/22: She continues to improve. She says her SOB is also better today. She is coughing less sputum now. She is saurating well on 2 lpm. Will try to wean her from O2. Repeat chest x-ray today. Anticipate discharge in the next 24-28 hrs if she continues to improve. (2) Sepsis Is this a current diagnosis for this admission?: Yes Plan: Secondary to multifocal pneumonia. Patient was tachypneic and hypoxic when she came in. She had elevated WBC and elevated liver enzymes as well. Continue Levaquin. Lactic acidosis did resolve. (3) Multifocal pneumonia Is this a current diagnosis for this admission?: Yes Plan: Sputum culture negative so far. Continue IV Levaquin and breathing treatments. (4) Elevated liver enzymes Is this a current diagnosis for this admission?: Yes Plan: She has a history of cholecystectomy. She did say she was taking 1000 mg of Tylenol q4 hrs in the past 2 days for the fever. Alk Phos is also elevated. CT of the abdomen/pelvis was unremarkable. Hepatitis panel pending. No Tylenol for now. Ibuprofen for fever prn for now. This could be related to her sepsis and not likely suggestive of mets. Liver enzymes continue to improve. Will continue to monitor. - Time Time Spent with patient: 25-34 minutes
[2018-11-22 11:56] LABS: ABSOLUTE EOSINOPHILS # (AUTO) 0.3 10^3/uL (0.0-0.6); ABSOLUTE LYMPHOCYTES (AUTO) 1.1 10^3/uL (0.5-4.7); ABSOLUTE MONOCYTES (AUTO) 0.5 10^3/uL (0.1-1.4); ABSOLUTE NEUT (AUTO) 4.5 10^3/uL (1.7-8.2); BASOPHILS % (AUTO) 0.8 % (0-2); EOSINOPHILS % (AUTO) 4.6 % (0-6); HEMATOCRIT 32.9 % (36.0-47.0); HEMOGLOBIN 10.9 g/dL (12.0-15.5); LYMPHOCYTES % (AUTO) 16.8 % (13-45); MEAN CORPUSCULAR HEMOGLOBIN 29.5 pg (27.0-33.4); MEAN CORPUSCULAR HGB CONC 33.1 g/dL (32.0-36.0); MEAN CORPUSCULAR VOLUME 89 fl (80-97); MONOCYTES % (AUTO) 8.3 % (3-13); PLATELET COUNT 309 10^3/uL (150-450); RED BLOOD COUNT 3.69 10^6/uL (3.72-5.28); RED CELL DISTRIBUTION WIDTH 13.5 % (11.5-14.0); SEGMENTED NEUTROPHILS % (AUTO) 69.5 % (42-78); TOTAL CELLS COUNTED % (AUTO) 100 %; WHITE BLOOD COUNT 6.4 10^3/uL (4.0-10.5)
--- NOTE | 2018-11-22 12:00 | RADIOLOGY REPORT (SQ) ---
EXAM DESCRIPTION: CHEST SINGLE VIEW COMPLETED DATE/TIME: 11/22/2018 10:53 am REASON FOR STUDY: reassess pna COMPARISON: 11/18/2018 EXAM PARAMETERS: NUMBER OF VIEWS: One view. TECHNIQUE: Single frontal radiographic view of the chest acquired. RADIATION DOSE: NA LIMITATIONS: None. FINDINGS: LUNGS AND PLEURA: Interval improvement with decrease in the multifocal infiltrates. The left suprahilar-left upper lobe infiltrate is persistent with some decrease noted. No pneumothorax o r pleural effusion. MEDIASTINUM AND HILAR STRUCTURES: No masses. Contour normal. HEART AND VASCULAR STRUCTURES: Heart normal in size. Normal vasculature. BONES: No acute findings. HARDWARE: Interval placement of Left PICC line with the tip in the region of the superior vena cava. OTHER: No other significant finding. IMPRESSION: 1. Since the previous examination dated 11/18/2018, interval improvement with a decrease in the multifocal infiltrates. The left suprahilar- left upper lobe infiltrate is persistent with s ome decrease noted. 2. Interval placement of Left PICC line. TECHNICAL DOCUMENTATION: JOB ID: [id number] [employer]- All Rights Reserved Reading location - IP/workstation name: [email or web address]
[2018-11-22] MEDS: LEVOTHYROXINE SODIUM 0.075 MG TABLET PO SCH (12:08)
[2018-11-22] MEDS: FUROSEMIDE 40 MG TABLET PO SCH (12:08)
[2018-11-22] MEDS: NORMAL SALINE 10 ML SDV (SCHEDULED) IV SCH ×2 (12:08→21:13)
[2018-11-22] MEDS: LEVOTHYROXINE SODIUM 0.1 MG TABLET PO SCH (12:10)
[2018-11-22 12:15] LABS: ALANINE AMINOTRANSFERASE 82 U/L (9-52); ALBUMIN 3.2 g/dL (3.5-5.0); ALKALINE PHOSPHATASE 185 U/L (38-126); ANION GAP 8 (5-19); ASPARTATE AMINO TRANSFERASE 29 U/L (14-36); BILIRUBIN,DIRECT 0.2 mg/dL (0.0-0.4); BILIRUBIN,TOTAL 0.3 mg/dL (0.2-1.3); BLOOD UREA NITROGEN 5 mg/dL (7-20); CALCIUM 8.5 mg/dL (8.4-10.2); CARBON DIOXIDE 27 mmol/L (22-30); CHLORIDE 102 mmol/L (98-107); GLUCOSE 102 mg/dL (75-110); POTASSIUM 3.7 mmol/L (3.6-5.0); SODIUM 137.1 mmol/L (137-145); TOTAL PROTEIN 5.7 g/dL (6.3-8.2)
[2018-11-23] MEDS: NORMAL SALINE 1000 ML 1,000 ML IV PRN (02:12)
[2018-11-23] MEDS: LEVOTHYROXINE SODIUM 0.075 MG TABLET PO SCH (07:09)
[2018-11-23] MEDS: LEVOTHYROXINE SODIUM 0.1 MG TABLET PO SCH (07:09)
[2018-11-23] MEDS: FUROSEMIDE 40 MG TABLET PO SCH (09:25)
[2018-11-23] MEDS: LEVOFLOXACIN 750 MG/D5W RTU 750 MG/150 ML RTUPB IV SCH (09:25)
[2018-11-23] MEDS: VENLAFAXINE HCL 75 MG TABLET PO SCH (09:25)
[2018-11-23] MEDS: FONDAPARINUX SODIUM INJ 2.5 MG/0.5 ML DISP.SYRIN SUBCUT SCH (09:25)
[2018-11-23] MEDS: NORMAL SALINE 10 ML SDV (SCHEDULED) IV SCH (09:26)
[2018-11-23 12:16] VITALS: BP 149/98
--- NOTE | 2018-11-23 16:56 | PDOC DISCHARGE SUMMARY ---
General - Admit/Disc Date/PCP Admission Date/Primary Care Provider: 11/18/18 12:35 RANULFO MCCORD MD Discharge Date: 11/23/18 - Discharge Diagnosis (1) Acute respiratory failure with hypoxia Is this a current diagnosis for this admission?: Yes (2) Sepsis Is this a current diagnosis for this admission?: Yes (3) Multifocal pneumonia Is this a current diagnosis for this admission?: Yes (4) Elevated liver enzymes Is this a current diagnosis for this admission?: Yes - Additional Information Resuscitation Status: Full Code Discharge Diet: Regular Discharge Activity: Activity As Tolerated Prescriptions: Levofloxacin [Levaquin 750 mg Tablet] 750 mg PO DAILY #5 tablet Home Medications: Levothyroxine Sodium [Synthroid] 175 mcg PO DAILY 09/13/12 Venlafaxine HCl [Effexor 75 mg Tablet] 75 mg PO Q12 08/07/14 Cholecalciferol (Vitamin D3) [Vitamin D3] 50,000 unit PO ELLIOTT@1000 11/18/18 Cyanocobalamin (Vitamin B-12) [Vitamin B-12 Inj 1000 Mcg/1 ml Vial] 1,000 mcg SQ Q28D 11/18/18 Furosemide [Lasix 40 mg Tablet] 40 mg PO DAILY 11/18/18 Guaifenesin/Pseudoephedrne HCl [Mucinex D ER 600-60 mg Tablet] 1 tab PO DAILY 11/18/18 Loratadine [Claritin 10 mg Tablet] 10 mg PO DAILY 11/18/18 Thyroid,Pork [Mcgraw Thyroid] 90 mg PO DAILY 11/18/18 Levofloxacin [Levaquin 750 mg Tablet] 750 mg PO DAILY #5 tablet 11/23/18 History of Present Illness History of Present Illness: TAZ LUONG is a 52 year old female witha PMH of Stage 1 breast CA w/ prior lumpectomy in 2012, prior chemoradiation, recnetl taken off Tamoxifen in Apr 2018, history of Rena en Y bypass and hypothyroidism who presented with increasingly productive cough. Patient says she had cough and cold on Sunday and was negative tested for flu by PCP then. She says on sunday, she started having more productive cough with br ownish sputum associated with chills and fever. She developed mild SOB but says it is more from all the bouts of coughing. She is not dyspneic at rest. Denies chest pain. In the ER, lowest sat was 89% on room air. Chest x -ray shows multifocal pneumonia. She is currently comfortable and saturating well on 2 lpm via NC. Hospital Course Hospital Course: TAZ LUONG is a 52 year old female with a PMH of Stage 1 breast CA w/ prior lumpectomy in 2012, prior chemoradiation, recently taken off Tamoxifen in Apr 2018, history of Rena en Y bypass and hypothyroidism who presented with increasingly productive cough and hypoxia and was admitted for multifocal pneumonia. 11/19: She is currently comfortable and saturating well on 2 lpm via NC. She says her SOB has slightly improved from yesterday. She continues to have very productive cough with grayish-brownish sputum. 11/22: She continues to improve. She says her SOB is also better today. She is coughing less sputum now. She is saturating well on 2 lpm. Will try to wean her from O2. Repeat chest x-ray today. Anticipate discharge in the next 24-28 hrs if she continues to improve. 11/23: Patient did significantly improve with antibiotics. Repeat chest x-ray showed significant improvement and clearing of infiltrates. She was weaned off O2. She ambulated most of the day on the hallway on room air with no acute issues. She will be discharged on 5 more days of Levaquin. Physical Exam Vital Signs: Temp Pulse Resp BP Pulse Ox 97.8 F 93 18 149/98 H 96 11/23/18 15:54 11/23/18 15:54 11/23/18 15:54 11/23/18 15:54 11/23/18 15:54 Intake & Output 11/22/18 11/23/18 11/24/18 06:59 06:59 06:59 Intake Total 3227 2910 1150 Balance 3227 2910 1150 Weight 321 lb 3.416 oz 320 lb 8.834 oz General appearance: PRESENT: no acute distress, well-developed, well-nourished Head exam: PRESENT: atraumatic, normocephalic Eye exam: PRESENT: conjunctiva pink, EOMI, PERRLA. ABSENT: scleral icterus Ear exam: PRESENT: normal external ear exam Mouth exam: PRESENT: moist, tongue midline Neck exam: ABSENT: carotid bruit, JVD, lymphadenopathy, thyromegaly Respiratory exam: PRESENT: rhonchi. ABSENT: rales, wheezes Cardiovascular exam: PRESENT: RRR. ABSENT: diastolic murmur, rubs, systolic murmur Pulses: PRESENT: normal dorsalis pedis pul GI/Abdominal exam: PRESENT: normal bowel sounds, soft. ABSENT: distended, guarding, mass, organolmegaly, rebound, tenderness Rectal exam: PRESENT: deferred Neurological exam: PRESENT: alert, awake, oriented to person, oriented to place, oriented to time, oriented to situation, CN II-XII grossly intact. ABSENT: motor sensory deficit Results Laboratory Results: 11/22/18 11:25 11/22/18 11:25 11/18/18 11:04 Blood Blood Culture - Final NO GROWTH IN 5 DAYS 11/18/18 09:08 Blood Blood Culture - Final NO GROWTH IN 5 DAYS 11/18/18 11/18/18 09:08 09:08 Creatine Kinase 113 CK-MB (CK-2) 1.13 Troponin I 0.023 NT-Pro-B Natriuret Pep 847 Impressions: Abdomen/Pelvis CT 11/18/18 11:54 IMPRESSION: 1. MULTIFOCAL PULMONARY INFILTRATES IN THE VISUALIZED LOWER CHEST CONSISTENT WITH PNEUMONIA. 2. OTHERWISE NO SIGNIFICANT OR ACUTE PROCESS IN THE ABDOMEN OR PELVIS. INCIDENTAL SURGICAL CHANGES. Guidance Fluoroscopy 11/20/18 00:00 IMPRESSION: SUCCESSFUL PLACEMENT OF A 5 FR DUAL LUMEN 47 CM PICC IN THE LEFT BASILIC VEIN. Interventional Vascular Procedure 11/20/18 00:00 IMPRESSION: SUCCESSFUL PLACEMENT OF A 5 FR DUAL LUMEN 47 CM PICC IN THE LEFT BASILIC VEIN. PICC Line Insertion 11/20/18 00:00 IMPRESSION: SUCCESSFUL PLACEMENT OF A 5 FR DUAL LUMEN 47 CM PICC IN THE LEFT BASILIC VEIN. Chest X-Ray 11/22/18 10:11 IMPRESSION: 1. Since the previous examination dated 11/18/2018, interval improvement with a decrease in the multifocal infiltrates. The left suprahilar- left upper lobe infiltrate is persistent with some decrease noted. 2. Interval placement of Left PICC line. Qualifiers - * PATIENT BEING DISCHARGED WITH ANY OF THE FOLLOWING DIAGNOSIS: No
== END 2018-11-23 16:08 | disposition home or self-care (01) | DRG 871 ==
LOC: ER 07:55 → EH 12:35 → 4S 17:34
PROVIDERS: ADMIT Internal Medicine; ATTEND Internal Medicine
PROC: 3E0F73Z Introduction of Anti-inflammatory into Respiratory Tract, Via Natural or Artificial Opening (ICD-10-PCS; 2018-11-19)
PROC: 02HV33Z Insertion of Infusion Device into Superior Vena Cava, Percutaneous Approach (ICD-10-PCS; principal; 2018-11-20)
PROC: B518ZZA Fluoroscopy of Superior Vena Cava, Guidance (ICD-10-PCS; 2018-11-20)
PROC: B548ZZA Ultrasonography of Superior Vena Cava, Guidance (ICD-10-PCS; 2018-11-20)
DX: A41.9 Sepsis, unspecified organism (principal); J18.9 Pneumonia, unspecified organism; J96.01 Acute respiratory failure with hypoxia; D64.9 Anemia, unspecified; E87.6 Hypokalemia; E03.9 Hypothyroidism, unspecified; Z85.3 Personal history of malignant neoplasm of breast; Z92.21 Personal history of antineoplastic chemotherapy; Z98.84 Bariatric surgery status; Z90.49 Acquired absence of other specified parts of digestive tract; Z88.2 Allergy status to sulfonamides
CPT/HCPCS: 36415; 36569; 71045; 71046; 74176; 76937; 77001; 80053; 80074; 81001; 82550; 82553; 83605; 83735; 83880; 84443; 84484; 85025; 87040; 87070; 87205; 93005; 93010; 94640; 96361; 96365; 99285; J0360; J1642; J1652; J1956; J2405; J3480; J3490; J7030; J7620

== ENCOUNTER 2019-02-10 09:36 | Day surgery (SDC) | payer OTHER ==
[~2019-02-10 09:36] MED LIST: PROPOFOL INJ 200 MG/20 ML VIAL IV ONE
[2019-02-10] MEDS ORDERED: PROPOFOL INJ 200 MG/20 ML VIAL IV ONE (10:48)
[2019-02-10 11:09] VITALS: BP 167/88
--- NOTE | 2019-02-10 12:47 | Operative Report ---
Operative Report DATE OF SURGERY: 02/10/19 Operative Report: The risks, benefits and alternatives of the procedure including the risk of bleeding, perforation requiring surgery have been explained to the patient in detail and informed consent has been obtained. Patient is brought back to the endoscopy suite and placed in the left, lateral decubital position. Timeout was called. Propofol medication is administered. A rectal examination is done which did not reveal any masses, tears or fissures. An Olympus videoscope was introduced into the patient's rectum. The scope was then carefully advanced all the way to the cecum. The cecum was identified by the usual anatomical landmarks including the ileocecal valve as well as the appendiceal office. Photodocumentation is obtained. The scope was then sequentially pulled back via the various segments of the colon including the ascending colon, hepatic flexure , transverse colon, splenic flexure, descending colon and finally into the rectosigmoid portions of the colon. Retroflexion maneuver is performed. PREOPERATIVE DIAGNOSIS: Colorectal cancer screening family history of colorectal cancer POSTOPERATIVE DIAGNOSIS: Redundant colon. Somewhat inadequate prep. Right colon inflammation status post biopsy. Internal hemorrhoids OPERATION: Colonoscopy with biopsy SURGEON: DAREN LUNDY ANESTHESIA: LMAC TISSUE REMOVED OR ALTERED: As noted above. COMPLICATIONS: None. ESTIMATED BLOOD LOSS: None. INTRAOPERATIVE FINDINGS: As noted above. PROCEDURE: Patient tolerated the procedure well. No immediate postprocedure complications are noted. Patient is discharged in good condition. Discharge date 02/10/2019. Discharge diet: Regular. Discharge activity: Regular. 2 to 3-week follow-up to discuss findings. Patient is instructed to call the office or proceed to the emergency room should there be any further questions. 5-year surveillance colonoscopy. Wait on the pathology.
== END 2019-02-10 11:10 | disposition home or self-care (01) ==
LOC: END 09:36
PROVIDERS: ATTEND Internal Medicine Gastroenterology
DX: Z12.11 Encounter for screening for malignant neoplasm of colon (principal); K52.9 Noninfective gastroenteritis and colitis, unspecified; K64.8 Other hemorrhoids
CPT/HCPCS: 45380; 88305 ×2; J2704; 811